=== PATIENT | male | born 1995 | race African-American/Black ===

== ENCOUNTER 2017-02-09 10:13 | Emergency (ER) | payer SELFPAY ==
[~2017-02-09] VITALS: Ht 177.8 cm; Wt 88.0 kg
[2017-02-09] MEDS ORDERED: ALBU18HF2 IH (10:20)
[2017-02-09 11:10] VITALS: BP 136/76
== END 2017-02-09 11:18 | disposition home or self-care (01) ==
LOC: ER 10:28
DX: R07.9 Chest pain, unspecified (principal); R00.2 Palpitations; F43.9 Reaction to severe stress, unspecified; J45.909 Unspecified asthma, uncomplicated; F17.210 Nicotine dependence, cigarettes, uncomplicated; R06.09 Other forms of dyspnea
CPT/HCPCS: 71010; 93005; 99284